=== PATIENT | female | born 1980 | race Two or more races ===

== ENCOUNTER 2016-10-19 10:51 | Inpatient (IN) | payer OTHER ==
[~2016-10-19] VITALS: Ht 157.5 cm; Wt 90.9 kg
[2016-10-28] MEDS ORDERED: MISOPROSTOL 200 MCG TABLET ONE (06:16)
[2016-10-28] MEDS ORDERED: OXYTOCIN 30U/ 0.9% NaCL 500ML 500 ML IV ONE (06:16)
[2016-10-28] MEDS ORDERED: OXYTOCIN 30U/ 0.9% NaCL 500ML 500 ML IV PRN (06:16)
[2016-10-28] MEDS ORDERED: LIDOCAINE 1%, 20ML ONE ×2 (06:16→14:27)
[2016-10-28] MEDS ORDERED: AMPICILLIN 2 GM in SODIUM CHLORIDE 0.9% 100 ML IVPB STA (06:16)
[2016-10-28] MEDS ORDERED: NEWBORN KIT ONE ×2 (06:17→08:14)
[2016-10-28] MEDS ORDERED: OXYTOCIN 30U/ 0.9% NaCL 500ML 500 ML ONE (06:17)
[2016-10-28] MEDS ORDERED: FENTANYL PF 100 MCG/2ML IV PRN (06:30)
[2016-10-28] MEDS ORDERED: ALUMINUM/MAG/SIMETHICONE 30 ML UDC PO PRN (06:30)
[2016-10-28] MEDS ORDERED: FENTANYL PF 100 MCG/2ML IVPush PRN (06:30)
[2016-10-28] MEDS ORDERED: PLEASE ENTER ALLERGIES MC SCH ×2 (06:30)
[2016-10-28] MEDS ORDERED: TERBUTALINE 1 MG/ML, 1ML IVPush PRN ×2 (06:30)
[2016-10-28] MEDS ORDERED: TERBUTALINE 1 MG/ML, 1ML SQ PRN (06:30)
[2016-10-28 06:32] VITALS: BP 116/60
[2016-10-28] MEDS ORDERED: PREN-3 PO (06:41)
[2016-10-28] MEDS: LACTATED RINGERS 1,000 ML IV SCH ×3 (06:48→14:56)
[2016-10-28] MEDS: AMPICILLIN 1 GM in SODIUM CHLORIDE 0.9% 50 ML IVPB SCH ×3 (10:30→14:30)
[2016-10-28] MEDS ORDERED: FENTANYL/BUPIV./NS/PF 250 ML EPIDCONT ONE ×2 (14:20→14:27)
[2016-10-28] MEDS ORDERED: LIDOCAINE/PF 1.5%-EPI 1:200K, 30ML ONE (14:27)
[2016-10-28] MEDS ORDERED: OXYTOCIN 30U/ 0.9% NaCL 500ML 500 ML IV SCH (22:58)
[2016-10-28] MEDS ORDERED: DOCUSATE 100 MG CAPSULE PO PRN (23:00)
[2016-10-28] MEDS ORDERED: METHYLERGONOVINE 0.2 MG/ML IM PRN (23:00)
[2016-10-28] MEDS ORDERED: MISOPROSTOL 200 MCG TABLET PR PRN (23:00)
[2016-10-28] MEDS ORDERED: ONDANSETRON 2MG/ML, 2ML IV PRN (23:00)
[2016-10-28] MEDS ORDERED: ACETAMINOPHEN 325 MG TABLET PO PRN (23:00)
[2016-10-28] MEDS ORDERED: IBUPROFEN 600 MG TABLET PO PRN (23:00)
[2016-10-28] MEDS ORDERED: CARBOPROST TROMETHAMINE 250 MCG/ML, 1ML IM PRN (23:00)
[2016-10-28] MEDS ORDERED: OXYTOCIN 10 UNITS/ML, 1ML IM PRN (23:00)
[2016-10-28] MEDS ORDERED: OXYcodone/APAP 5/325MG TABLET PO PRN ×2 (23:00)
[2016-10-29 01:10] VITALS: BP 124/66
[2016-10-29 05:25] VITALS: BP 104/61
[2016-10-29 07:36] LABS: DIFF TOTAL CELLS COUNTED 100 CELL DIFF
[2016-10-29 07:37] LABS: LARGE PLATELETS 1+; VERIFY COUNTS? YES
[2016-10-29] MEDS ORDERED: PRENATAL VIT/IRON/FA 1 EACH TABLET PO SCH (09:00)
[2016-10-29 09:10] VITALS: BP 103/52
[2016-10-29] MEDS ORDERED: OXYC-302 PO (10:22)
[2016-10-29] MEDS ORDERED: SENN1TAB5 PO (10:23)
[2016-10-29] MEDS ORDERED: IBUP-1222 PO (10:23)
[2016-10-29 11:56] VITALS: BP 112/67
[2016-10-29 16:26] VITALS: BP 127/67
[2016-10-29 20:35] VITALS: BP 122/68
== END 2016-10-29 22:00 | disposition home or self-care (01) | DRG 775 ==
LOC: LDIP 10-28 06:14 → 2NW 10-29 00:50
PROVIDERS: ADMIT Obstetrics & Gynecology; ATTEND Obstetrics & Gynecology
PROC: 10E0XZZ Delivery of Products of Conception, External Approach (ICD-10-PCS; principal; 2016-10-28)
PROC: 10907ZC Drainage of Amniotic Fluid, Therapeutic from Products of Conception, Via Natural or Artificial Opening (ICD-10-PCS; 2016-10-28)
PROC: 3E033VJ Introduction of Other Hormone into Peripheral Vein, Percutaneous Approach (ICD-10-PCS; 2016-10-28)
PROC: 00HU33Z Insertion of Infusion Device into Spinal Canal, Percutaneous Approach (ICD-10-PCS; 2016-10-28)
PROC: 3E0R3CZ (ICD-10-PCS; 2016-10-28)
DX: O48.0 Post-term pregnancy (principal); Z37.0 Single live birth; Z3A.41 41 weeks gestation of pregnancy; O99.824 Streptococcus B carrier state complicating childbirth; O77.0 Labor and delivery complicated by meconium in amniotic fluid; O09.513 Supervision of elderly primigravida, third trimester; O99.62 Diseases of the digestive system complicating childbirth; K21.9 Gastro-esophageal reflux disease without esophagitis
CPT/HCPCS: 36415; 82803; 85025; 86850; 86900; 88305; J0290; J3490; J3010; J7120

== ENCOUNTER → 2017-05-14 | Outpatient (CLI) | payer OTHER ==
[~2017-05-14] MED LIST: IBUP-1222 PO; OXYC-302 PO; PREN-3 PO; SENN-52 PO
== END ==
LOC: RAD 17:16
PROVIDERS: ATTEND Family Medicine
DX: M54.2 Cervicalgia (principal)
CPT/HCPCS: 72040